=== PATIENT | male | born 1955 | race African-American/Black ===

== ENCOUNTER 2021-05-05 15:27 | Inpatient (IN) ==
[2021-05-05 17:50] LABS: ABG Base Excess -10.9 MMOL/L (-2.5-2.5); ABG HCO3 16.1 MMOL/L (20-26); ABG PH 7.375 (7.35-7.45); ABG PO2 80.5 MM HG (80-95)
[2021-05-05 17:51] LABS: ABG PCO2 20.7 MM HG (35-48)
[2021-05-05 17:52] LABS: Basophils % 0.2 % (0.0-0.8); Eosinophils % 0.2 % (0.00-10.9); Hematocrit 51.7 VOL% (42.0-52.0); Hemoglobin 16.5 GM/DL (14.0-18.0); Immature Granulocytes % 2.1 %; Immature Granulocytes Absolute 0.14 #; Lymphocytes # 1.6 10*3/uL (1.4-4.0); Lymphocytes % 23.8 % (21.2-54.2); Mean Corpuscular HGB Conc 31.9 GM/DL (32-36); Mean Corpuscular Volume 92.3 FL (87-102); Mean Platelet Volume 12.1 FL (9.6-12.0); Monocytes % 7.8 % (1.7-12.7); Neutrophils % 65.9 % (38.7-73.9); Platelet Count 87 T/CUMM (130-400); Red Cell Distribution Width 12.6 % (9.3-17.3); White Blood Count 6.6 T/CUMM (4-12)
[2021-05-05 18:18] LABS: Band Neutrophils 2 % (0-10); Eosinophils 1 % (0-10); Lymphocytes 15 % (20-55); Platelet Estimate Adequate; Polychromasia Slight; Segmented Neutrophils 69 % (50-85); Total Cells Counted 100
[2021-05-05 18:24] LABS: Albumin 3.6 G/DL (3.4-5.0); Bilirubin,Total 1.1 MG/DL (0.20-1.00); Calcium 9.3 MG/DL (8.5-10.1); Ferritin 13428.9 ng/ml (26-388); Osmolality,Calculated 283.2 MOS/KG (273-304); Potassium 4.6 MMOL/L (3.5-5.1); Total Protein 9.2 G/DL (6.4-8.2)
[2021-05-05] MEDS ORDERED: AZITHROMYCIN INJ 500 MG in SODIUM CHLORIDE 0.9% 250 ML IV STA (18:39)
[2021-05-05] MEDS ORDERED: SODIUM CHLORIDE 0.9% 1,000 ML IV STA (18:39)
[2021-05-05] MEDS ORDERED: GLUCAGON 1 MG VIAL IM PRN (18:59)
[2021-05-05] MEDS ORDERED: ACETAMINOPHEN 325 MG TABLET PO PRN (18:59)
[2021-05-05] MEDS ORDERED: ONDANSETRON 4 MG/2 ML VIAL IV PRN (18:59)
[2021-05-05] MEDS ORDERED: DEXTROSE 50% 25 GM/50 ML VIAL IV PRN (18:59)
[2021-05-05] MEDS: ENOXAPARIN 60 MG/0.6 ML SYRINGE SUBCUT SCH (19:03)
[2021-05-05] MEDS: SODIUM CHLORIDE 0.45% 1,000 ML IV SCH (21:32)
[2021-05-05] MEDS: ASCORBIC ACID 500 MG TABLET PO SCH (21:32)
[2021-05-05] MEDS: MELATONIN 3 MG TABLET PO SCH (21:32)
[2021-05-05] MEDS: LEVOFLOXACIN INJ 500 MG/100 ML PREMIX IV SCH (21:32)
[2021-05-06 05:46] LABS: Basophils % 0.4 % (0.0-0.8); Hematocrit 46.1 VOL% (42.0-52.0); Hemoglobin 14.6 GM/DL (14.0-18.0); Immature Granulocytes % 1.3 %; Immature Granulocytes Absolute 0.07 #; Lymphocytes % 36.3 % (21.2-54.2); Mean Corpuscular HGB Conc 31.7 GM/DL (32-36); Mean Corpuscular Volume 95.4 FL (87-102); Mean Platelet Volume 12.1 FL (9.6-12.0); Monocytes % 6.8 % (1.7-12.7); Neutrophils % 55.2 % (38.7-73.9); Red Blood Count 4.83 MC/CUMM (3.8-5.5); Red Cell Distribution Width 12.6 % (9.3-17.3); White Blood Count 5.5 T/CUMM (4-12)
[2021-05-06 05:48] LABS: Platelet Count 90 T/CUMM (130-400)
[2021-05-06 06:12] LABS: Anisocytosis Slight; Burr Cells Few; Platelet Estimate Decreased
[2021-05-06 06:13] LABS: Macrocytosis Slight
[2021-05-06 06:14] LABS: Albumin 2.7 G/DL (3.4-5.0); Bilirubin,Total 1.1 MG/DL (0.20-1.00); Calcium 8.4 MG/DL (8.5-10.1); Osmolality,Calculated 281.4 MOS/KG (273-304); Potassium 4.4 MMOL/L (3.5-5.1); Total Protein 7.4 G/DL (6.4-8.2)
[2021-05-06] MEDS: ENOXAPARIN 60 MG/0.6 ML SYRINGE SUBCUT SCH (06:20)
[2021-05-06 07:39] LABS: Ferritin 7890.7 ng/ml (26-388)
[2021-05-06] MEDS ORDERED: SODIUM CHLORIDE 0.9% 500 ML IV ONE (08:29)
[2021-05-06] MEDS ORDERED: IVERMECTIN 3 MG TABLET PO SCH (09:00)
[2021-05-06] MEDS: ZINC GLUCONATE 50 MG TABLET PO SCH (09:05)
[2021-05-06] MEDS: ASCORBIC ACID 500 MG TABLET PO SCH ×2 (09:06→20:33)
[2021-05-06] MEDS: CHOLECALCIFEROL 1,000 UNIT TABLET PO SCH (09:06)
[2021-05-06] MEDS: PANTOPRAZOLE 40 MG VIAL IV SCH (09:16)
[2021-05-06] MEDS: DEXAMETHASONE 4 MG/1 ML VIAL IV SCH (09:18)
[2021-05-06] MEDS: SODIUM CHLORIDE 0.9% 1,000 ML IV SCH ×3 (09:20→18:23)
[2021-05-06] MEDS: SODIUM CHLORIDE 0.45% 1,000 ML IV SCH (10:38)
[2021-05-06] MEDS ORDERED: REMDESIVIR 200 MG in SODIUM CHLORIDE 0.9% 210 ML IV ONE (11:00)
[2021-05-06] MEDS: BUDESONIDE/FORMOTEROL 160-4.5 INHALER 6 GM INH SCH ×2 (14:14→22:14)
[2021-05-06] MEDS: ENOXAPARIN 40 MG/0.4 ML SYRINGE SUBCUT SCH (20:32)
[2021-05-06] MEDS: MELATONIN 3 MG TABLET PO SCH (20:33)
[2021-05-07] MEDS: SODIUM CHLORIDE 0.9% 1,000 ML IV SCH ×3 (00:53→22:32)
[2021-05-07 06:10] LABS: Hematocrit 39.3 VOL% (42.0-52.0); Hemoglobin 12.4 GM/DL (14.0-18.0); Immature Granulocytes % 1.2 %; Immature Granulocytes Absolute 0.05 #; Lymphocytes # 1.5 10*3/uL (1.4-4.0); Lymphocytes % 36.2 % (21.2-54.2); Mean Corpuscular HGB Conc 31.6 GM/DL (32-36); Mean Corpuscular Volume 95.4 FL (87-102); Mean Platelet Volume 12.1 FL (9.6-12.0); Neutrophils % 49.6 % (38.7-73.9); Platelet Count 102 T/CUMM (130-400); Red Blood Count 4.12 MC/CUMM (3.8-5.5); Red Cell Distribution Width 12.6 % (9.3-17.3); White Blood Count 4.2 T/CUMM (4-12)
[2021-05-07 06:34] LABS: Albumin 2.3 G/DL (3.4-5.0); Bilirubin,Total 1.1 MG/DL (0.20-1.00); Calcium 8.1 MG/DL (8.5-10.1); Osmolality,Calculated 287.4 MOS/KG (273-304); Potassium 5.1 MMOL/L (3.5-5.1); Total Protein 6.2 G/DL (6.4-8.2)
[2021-05-07 06:46] LABS: Lymphocytes 31 % (20-55); Platelet Estimate Decreased; Segmented Neutrophils 59 % (50-85); Total Cells Counted 100
[2021-05-07 06:53] LABS: Ferritin 3724.2 ng/ml (26-388)
[2021-05-07] MEDS: PANTOPRAZOLE 40 MG VIAL IV SCH (09:59)
[2021-05-07] MEDS: DEXAMETHASONE 4 MG/1 ML VIAL IV SCH (10:01)
[2021-05-07] MEDS: ENOXAPARIN 40 MG/0.4 ML SYRINGE SUBCUT SCH ×2 (10:02→21:32)
[2021-05-07] MEDS: CHOLECALCIFEROL 1,000 UNIT TABLET PO SCH (10:03)
[2021-05-07] MEDS: ZINC GLUCONATE 50 MG TABLET PO SCH (10:03)
[2021-05-07] MEDS: REMDESIVIR 100 MG in SODIUM CHLORIDE 0.9% 100 ML IV SCH (10:03)
[2021-05-07] MEDS: ASCORBIC ACID 500 MG TABLET PO SCH ×2 (10:04→21:33)
[2021-05-07] MEDS: BUDESONIDE/FORMOTEROL 160-4.5 INHALER 6 GM INH SCH ×2 (10:26→21:32)
[2021-05-07] MEDS: LEVOFLOXACIN INJ 500 MG/100 ML PREMIX IV SCH (21:32)
[2021-05-07] MEDS: MELATONIN 3 MG TABLET PO SCH (21:32)
[2021-05-08 06:08] LABS: Basophils % 0.1 % (0.0-0.8); Hemoglobin 12.1 GM/DL (14.0-18.0); Immature Granulocytes % 0.7 %; Immature Granulocytes Absolute 0.06 #; Lymphocytes # 1.9 10*3/uL (1.4-4.0); Lymphocytes % 23.7 % (21.2-54.2); Mean Corpuscular HGB Conc 31.8 GM/DL (32-36); Mean Corpuscular Volume 94.5 FL (87-102); Mean Platelet Volume 12.1 FL (9.6-12.0); Monocytes % 12.2 % (1.7-12.7); Neutrophils % 63.3 % (38.7-73.9); Platelet Count 125 T/CUMM (130-400); Red Blood Count 4.02 MC/CUMM (3.8-5.5); Red Cell Distribution Width 12.7 % (9.3-17.3)
[2021-05-08 06:29] LABS: Albumin 2.3 G/DL (3.4-5.0); Calcium 8.2 MG/DL (8.5-10.1); Osmolality,Calculated 293.8 MOS/KG (273-304); Potassium 4.8 MMOL/L (3.5-5.1); Total Protein 6.1 G/DL (6.4-8.2)
[2021-05-08 06:53] LABS: Ferritin 2484.3 ng/ml (26-388)
[2021-05-08] MEDS: DEXAMETHASONE 4 MG/1 ML VIAL IV SCH (10:14)
[2021-05-08] MEDS: ENOXAPARIN 40 MG/0.4 ML SYRINGE SUBCUT SCH ×2 (10:16→21:15)
[2021-05-08] MEDS: ASCORBIC ACID 500 MG TABLET PO SCH ×2 (10:16→21:14)
[2021-05-08] MEDS: PANTOPRAZOLE 40 MG VIAL IV SCH (10:16)
[2021-05-08] MEDS: REMDESIVIR 100 MG in SODIUM CHLORIDE 0.9% 100 ML IV SCH (10:17)
[2021-05-08] MEDS: BUDESONIDE/FORMOTEROL 160-4.5 INHALER 6 GM INH SCH ×2 (10:17→21:15)
[2021-05-08] MEDS: ZINC GLUCONATE 50 MG TABLET PO SCH (10:18)
[2021-05-08] MEDS: CHOLECALCIFEROL 1,000 UNIT TABLET PO SCH (11:02)
[2021-05-08] MEDS: SODIUM CHLORIDE 0.9% 1,000 ML IV SCH (18:11)
[2021-05-08] MEDS: MELATONIN 3 MG TABLET PO SCH (21:14)
[2021-05-09 04:34] VITALS: BP 102/66
[2021-05-09 05:56] LABS: Hematocrit 37.2 VOL% (42.0-52.0); Immature Granulocytes % 0.5 %; Immature Granulocytes Absolute 0.04 #; Lymphocytes # 1.8 10*3/uL (1.4-4.0); Lymphocytes % 21.3 % (21.2-54.2); Mean Corpuscular HGB Conc 32.3 GM/DL (32-36); Mean Corpuscular Volume 93.5 FL (87-102); Mean Platelet Volume 12.1 FL (9.6-12.0); Monocytes % 14.3 % (1.7-12.7); Neutrophils % 63.9 % (38.7-73.9); Platelet Count 133 T/CUMM (130-400); Red Blood Count 3.98 MC/CUMM (3.8-5.5); Red Cell Distribution Width 12.7 % (9.3-17.3); White Blood Count 8.4 T/CUMM (4-12)
[2021-05-09 06:30] LABS: Band Neutrophils 1 % (0-10); Lymphocytes 14 % (20-55); Platelet Estimate Normal; Segmented Neutrophils 71 % (50-85); Total Cells Counted 100
[2021-05-09 06:35] LABS: Albumin 2.4 G/DL (3.4-5.0); Potassium 4.5 MMOL/L (3.5-5.1); Total Protein 5.9 G/DL (6.4-8.2)
[2021-05-09 06:42] LABS: Ferritin 2355.4 ng/ml (26-388)
[2021-05-09] MEDS: PANTOPRAZOLE 40 MG VIAL IV SCH (09:23)
[2021-05-09] MEDS: ENOXAPARIN 40 MG/0.4 ML SYRINGE SUBCUT SCH (09:23)
[2021-05-09] MEDS: CHOLECALCIFEROL 1,000 UNIT TABLET PO SCH (09:23)
[2021-05-09] MEDS: ASCORBIC ACID 500 MG TABLET PO SCH (09:23)
[2021-05-09] MEDS: ZINC GLUCONATE 50 MG TABLET PO SCH (09:23)
[2021-05-09] MEDS: BUDESONIDE/FORMOTEROL 160-4.5 INHALER 6 GM INH SCH (09:23)
[2021-05-09] MEDS: DEXAMETHASONE 4 MG/1 ML VIAL IV SCH (10:34)
[2021-05-09] MEDS: REMDESIVIR 100 MG in SODIUM CHLORIDE 0.9% 100 ML IV SCH (12:34)
== END 2021-05-09 14:44 | disposition home or self-care (01) | DRG 177 ==
LOC: N.ED 15:27 → N.EDINP 18:50 → SUATTDRO 18:50 → N.2E 20:22
PROVIDERS: ADMIT Hospitalist; ATTEND Internal Medicine